=== PATIENT | male | born 1960 | race Caucasian/White ===

== ENCOUNTER 2021-12-16 08:15 | Day surgery (SDC) | payer OTHER ==
[~2021-12-16] VITALS: Ht 170.2 cm; Wt 95.4 kg
--- NOTE | 2021-12-16 10:00 | NUR ---
12/16/21 PALOMA INFANTE 0.25MG OF EPI (1MG/1ML) ADDED TO 50MLS OF BUPIVACAINE 0.5% TO CREATE A LOCAL SOLUTION OF BUPIVACAINE 0.5% WITH EPI 1:200,000.
--- NOTE | 2021-12-16 10:48 | NUR ---
12/16/21 1048 Martha Lira LR BAG EMPTY UPON ARRIVIAL TO PACU. NEW BAG OF LR 1000ML HUNG AT 1040 BY RN AT TKO RATE.
== END 2021-12-16 11:45 | disposition home or self-care (01) ==
LOC: ORSCSDS 08:15
PROVIDERS: Podiatrist Foot & Ankle Surgery
PROC: 0QSK04Z Reposition Left Fibula with Internal Fixation Device, Open Approach (ICD-10-PCS; principal; 2021-12-16 09:45)
DX: S82.62XA Displaced fracture of lateral malleolus of left fibula, initial encounter for closed fracture (principal); Z87.891 Personal history of nicotine dependence
CPT/HCPCS: A9270; C1713; J0171; J0690; J1885; J2250; J2704; J3010; J7120

== ENCOUNTER 2022-05-11 07:26 | Day surgery (SDC) | payer OTHER ==
[~2022-05-11] VITALS: Ht 170.2 cm; Wt 94.6 kg
== END 2022-05-11 10:36 | disposition home or self-care (01) ==
LOC: ORSCSDS 07:26
PROVIDERS: Internal Medicine Gastroenterology
PROC: 0DBH8ZX Excision of Cecum, Via Natural or Artificial Opening Endoscopic, Diagnostic (ICD-10-PCS; principal; 2022-05-11 08:45)
PROC: 0DBN8ZX Excision of Sigmoid Colon, Via Natural or Artificial Opening Endoscopic, Diagnostic (ICD-10-PCS; principal; 2022-05-11 08:45)
PROC: 0DBP8ZX Excision of Rectum, Via Natural or Artificial Opening Endoscopic, Diagnostic (ICD-10-PCS; principal; 2022-05-11 08:45)
PROC: 0DBL8ZX Excision of Transverse Colon, Via Natural or Artificial Opening Endoscopic, Diagnostic (ICD-10-PCS; principal; 2022-05-11 08:45)
PROC: 0DBM8ZX Excision of Descending Colon, Via Natural or Artificial Opening Endoscopic, Diagnostic (ICD-10-PCS; principal; 2022-05-11 08:45)
PROC: 0DBK8ZX Excision of Ascending Colon, Via Natural or Artificial Opening Endoscopic, Diagnostic (ICD-10-PCS; principal; 2022-05-11 08:45)
DX: Z12.11 Encounter for screening for malignant neoplasm of colon (principal); Z80.0 Family history of malignant neoplasm of digestive organs; D12.0 Benign neoplasm of cecum; D12.2 Benign neoplasm of ascending colon; D12.3 Benign neoplasm of transverse colon; D12.4 Benign neoplasm of descending colon; D12.5 Benign neoplasm of sigmoid colon; D12.8 Benign neoplasm of rectum; K63.5 Polyp of colon; Z87.891 Personal history of nicotine dependence; K57.30 Diverticulosis of large intestine without perforation or abscess without bleeding; K64.8 Other hemorrhoids
CPT/HCPCS: 88305; J2704; J7120

== ENCOUNTER 2024-04-30 06:38 | Day surgery (SDC) | payer OTHER ==
[~2024-04-30] VITALS: Ht 172.7 cm; Wt 95.5 kg
[2024-04-30] MEDS ORDERED: Lactated Ringer's 1,000 ML IV ONE ×2 (07:21→07:48)
[2024-04-30] MEDS ORDERED: propofoL 50 ML IV ONE (07:22)
[2024-04-30 08:49] VITALS: BP 127/78
== END 2024-04-30 09:06 | disposition home or self-care (01) ==
LOC: ORSCSDS 06:38
PROVIDERS: Internal Medicine Gastroenterology
PROC: 0DBM8ZX Excision of Descending Colon, Via Natural or Artificial Opening Endoscopic, Diagnostic (ICD-10-PCS; principal; 2024-04-30 08:00)
PROC: 0DBK8ZX Excision of Ascending Colon, Via Natural or Artificial Opening Endoscopic, Diagnostic (ICD-10-PCS; principal; 2024-04-30 08:00)
PROC: 0DBL8ZX Excision of Transverse Colon, Via Natural or Artificial Opening Endoscopic, Diagnostic (ICD-10-PCS; principal; 2024-04-30 08:00)
DX: Z12.11 Encounter for screening for malignant neoplasm of colon (principal); Z86.0100 Personal history of colon polyps, unspecified; Z80.0 Family history of malignant neoplasm of digestive organs; D12.3 Benign neoplasm of transverse colon; D12.4 Benign neoplasm of descending colon; K63.5 Polyp of colon; Z87.891 Personal history of nicotine dependence
CPT/HCPCS: 88305; J2704; J7120